=== PATIENT | male | born 2005 | race Caucasian/White ===

== ENCOUNTER 2024-08-23 06:16 | Emergency (ER) | payer OTHER, SELFPAY ==
[2024-08-23 06:20] VITALS: BP 139/77
[2024-08-23 07:19] VITALS: BMI 21.7
[2024-08-23 07:20] VITALS: BP 145/88
--- NOTE | 2024-08-23 07:26 | ED.GENMED ---
History of Present Illness
General
Chief Complaint: Anxiety
Source: patient
Time Seen by Provider: 08/23/24 07:14
History of Present Illness
History of Present Illness:
18-year-old male presents to the emergency room concerned about severe anxiety. Patient has been feeling increased anxiety for the past few weeks. He has noted that when he is more anxious he has a poor appetite and is nauseous. Patient feels he
is lost about 6 pounds over the past few weeks. He denies any fever, chills, abdominal pain. Patient does vape CBD 'a lot'. He denies any fever or chills. Denies any sore throat or cough. No urinary symptoms. No diarrhea or constipation.
Phy Exam
Physical Exam
Physical Exam:
General: Awake, Alert, Oriented X3. No acute distress.
Vitals: unremarkable
Head: Atraumatic
Eyes: Pupils equal, EOMI
Throat: Airway intact, no exudates, dry mucosa
Neck: Trachea midline
Lungs: Clear and equal b/l
Heart: Regular rate, no murmurs
Abd: Soft, Nontender, No pulsatile mass
Neuro: Nonfocal
Skin: Warm, dry, no rash
Extremities: pulses equal b/l, no edema
Course
Orders/Labs/Results
Orders:
Orders
08/23/24 07:24
0.9% Sodium Chloride 1000 ml [Nss] 1,000 ml IV BOLUS
08/23/24 07:26
Crisis Consult Urgent
Reason for Consult: severe anxiety
08/23/24 07:36
Complete Blood Count/With Diff Urgent
Comprehensive Metabolic Panel Urgent
TSH Reflex To Free T4 Urgent
08/23/24 07:40
Alprazolam [Xanax] 0.25 mg PO NOW STA
Abnormal Lab Results
08/23/24
07:36
RBC 4.46 L 10^6/uL
(4.70-6.10)
MCH 32.1 H pg
(27.0-31.0)
Absolute Neuts (auto) 7.3 H 10^3/uL
(1.4-6.5)
Absolute Lymphs (auto) 0.7 L 10^3/uL
(1.2-3.4)
Neutrophils % 84.5 H %
(42.2-75.2)
Lymphocytes % 7.7 L %
(20.5-51.1)
Glucose 111 H mg/dl
(70-99)
Total Bilirubin 3.4 H mg/dl
(0.2-1.3)
08/23/24 07:36
08/23/24 07:36
Vital Signs
Initial and Last Documented VS:
Initial Vital Signs
Temp Pulse Resp BP Pulse Ox
97.9 F 78 18 139/77 99
08/23/24 06:20 08/23/24 06:20 08/23/24 06:20 08/23/24 06:20 08/23/24 06:20
Last Documented Vital Signs
Temp Pulse Resp BP Pulse Ox
98.6 F 60 16 129/66 96
08/23/24 10:11 08/23/24 10:11 08/23/24 10:11 08/23/24 10:11 08/23/24 10:11
MDM/Problems Addressed
Differential Diagnosis Includes:
anxiety, depression, hyperthyroidism
MDM/Problems Addressed:
Patient presents after having multiple anxiety attacks over the past several days. He is becoming, was paralyzed by his level of anxiety. Patient has been using large amounts of CBD to treat his anxiety but has not seen a psychiatrist. He does
have an appointment with his primary care doctor today. Workup here does not show any evidence of an acute medical issue. He does feel better after a small dose of Xanax. Patient safe for discharge to follow-up with his primary care doctor. We
had him speak with crisis who provided resources and contact information for psychiatric services here in the area. Patient denies any suicidal homicidal ideations.
*Pulse Oximetry
Patient hypoxic: no
*Critical Care Note
Total Time (30-74mins, 75-104mins- exclusive of procedures): Not Applicable
ED Attending Note
-
Portions of this chart may have been created with voice recognition software.� Occasional wrong word or��sound alike� substitutions may have occurred due to the inherent limitations of voice recognition software.
Discharge Plan
Departure
Patient Disposition: Home (Routine Discharge)
Date of Disposition: 08/23/24
Time of Disposition: 09:18
Patient with high blood pressure during this ER visit?: No
Condition: Good
Discharge Problem:
Anxiety
Instructions: Anxiety, Adult (DC)
Referrals:
Job Alonzo MD [Family Provider] -
Interventions
Interventions:
*Risk Screen - Suicide Last Done: 08/23/24 06:20
*General Assessment Last Done: 08/23/24 07:25
*Neglect/Abuse Screening Last Done: 08/23/24 07:45
ED- Fall Risk Assessment Last Done: 08/23/24 07:19
*ED COVID-19 Vaccine History Last Done: 08/23/24 07:19
*Nursing Disposition Last Done: 08/23/24 10:11
ED-Psychological Assessment Last Done: 08/23/24 07:19
Discharge Date and Time
Discharge Date/Time: 08/23/24 09:55
Print Language: [place]ESE
[2024-08-23] MEDS: XANAX 0.25 MG PO (07:44)
[2024-08-23] MEDS: NSS 1000 IV (07:44)
[2024-08-23 07:47] LABS: % Basophils 0.5 % (0-2); % Eosinophils 0.2 % (0-6); % Immature Granulocytes 0.3 % (0-0.5); % Lymphocytes 7.7 % (20.5-51.1); % Monocytes 6.8 % (1.7-9.3); % Neutrophils 84.5 % (42.2-75.2); Absolute Lymphocytes 0.7 10^3/uL (1.2-3.4); Absolute Monocytes 0.6 10^3/uL (0.1-0.6); Absolute Neutrophils 7.3 10^3/uL (1.4-6.5); Hematocrit 39.1 % (39.0-52.0); Hemoglobin 14.3 g/dL (13.0-18.0); Mean Corp Hgb Conc. 36.6 g/dL (33.0-37.0); Mean Corpuscular Hgb 32.1 pg (27.0-31.0); Mean Corpuscular Volume 87.7 fL (80.0-94.0); Mean Platelet Volume 9.9 fL (7.4-10.4); Nucleated Red Blood Cells % 0 % (-); Platelet Count 273 10^3/uL (130-400); Red Blood Cell Count 4.46 10^6/uL (4.70-6.10); White Blood Cell Count 8.7 10^3/uL (4.8-10.8)
[2024-08-23 07:57] LABS: ALT (SGPT) 17 U/L (0-50); AST (SGOT) 20 U/L (17-59); Albumin 4.9 g/dl (3.5-5.0); Alkaline Phosphatase 46 U/L (38-126); Blood Urea Nitrogen 16 mg/dl (9-20); Calcium 9.7 mg/dl (8.4-10.2); Carbon Dioxide 27 mmol/L (22-30); Chloride 98 mmol/L (98-107); Estimated Creatinine Clearance 109 ml/min; Glucose 111 mg/dl (70-99); Potassium 3.8 mmol/L (3.5-5.1); Sodium 138 mmol/L (135-145); Total Bilirubin 3.4 mg/dl (0.2-1.3); Total Protein 6.9 g/dl (6.3-8.2); eGFR > 60.00
[2024-08-23 08:00] VITALS: BP 117/70
[2024-08-23 08:27] LABS: TSH Reflex To Free T4 0.92 uIU/ml (0.47-4.68)
[2024-08-23 09:00] VITALS: BP 115/64
[2024-08-23 09:43] VITALS: BP 129/66
--- NOTE | 2024-08-23 09:55 | EDRN ---
Reviewed discharge instructions with patient and his mother. Verbalized understanding. Ambulated with steady gait to the [facility].
[2024-08-23 10:11] VITALS: BP 129/66
== END 2024-08-23 09:55 | disposition home or self-care (01) ==
LOC: EMR 06:16
PROVIDERS: EMERGENCY PHYSICIAN Emergency Medicine; FAMILY PHYSICIAN Internal Medicine
DX: F41.9 Anxiety disorder, unspecified (principal)
CPT/HCPCS: 99284; 96360; 80053; 84443; 85025